=== PATIENT | female | born 1990 | race Caucasian/White ===

== ENCOUNTER 2017-06-27 11:49 | Emergency (ER) | payer MEDICAID ==
[~2017-06-27] VITALS: Ht 162.6 cm; Wt 67.6 kg
[~2017-06-27 11:49] MED LIST: BUSPAR10 MG PO; FLEXERIL10 MG PO; FLEXERIL5 MG PO; KLONOPIN 0.5MG0.5 MG PO; LORTAB 5/500 501 TAB PO; NAPROSYN500 M1 PO; NOMEDS; PHENERGAN 25MG.25 M1 PO; ULTRAM 50 MG TA50 MG PO; VISTARIL25 M1 PO; VOLTAREN75 MG PO; ZOLOFT25 MG PO
[2017-06-27] MEDS ORDERED: VISTARIL50 MG PO (12:30)
--- NOTE | 2017-06-27 12:31 | [facility]gent Treatment [facility] Report ---
History of Present Issue Date/Time Seen by Provider 06/27/17 1216 Visit Reason Pt arrived:Walked Presenting Problem:PT ADVISES THAT SHE HAS HAD AN ANXIETY ATTACK FOR 3 DAYS Location if Accident: Onset of symptoms date/time:/ or onset unknown for:MEDICAL HX UNKNOWN Have you (or family members/close friends) recently traveled outside the [place]? N If Yes, where/when: Have you had exposure to infectious disease within the past month? TB? Other? Specify: Patient state that she was diagnosed with anxiety 5 years ago and currently on medication for it States that recently she has been really stressed out and been having anxiety attacks on and off for the last 3 days States that she called her family doctor to see if she could get into see her today and she told her to come here and get seen to get her a little something to get her through until her appointment on Thursday. ALLERGIES Coded Allergies: ethinyl estradiol (From [employer] (28)) (MOOD CHANGES 11/09/15) hydrocodone (I-HIVES 11/09/15) norgestimate (From [employer] (28)) (MOOD CHANGES 11/09/15) Home Medications Active Scripts Naproxen (Naprosyn 500MG Tab) 500 MG PO BID #40 TAB Prov: 02/06/17 History Medical History General CAD? No Angina: No [place]: No Hypertension? No Hyperlipidemia? No CHF? No DVT? No PE? No COPD? No Asthma? Yes Anemia? No GERD? No Gastric ulcers? No GI Bleed? No Hernia? No Thyroid Problems? No Hypothyroidism? No CVA? No Seizures? No Diabetes? No Renal Insuffiency? No UTI? No Stones? No BPH? No GB Disease: No Nephritic Syndrome? No Asplenia? No Hepatitis? No Sickle Cell Disease? No Arthritis? No Migraines? No Cataracts? No Glaucoma? No MRSA? No HIV? No TB? No Anxiety? Yes Depression? No Cancer? No More? Yes Additional hx: DEPRESSION OVARIAN CYSTS Immunization HX DT/Tetanus Unknown Flu Refused Pneumonia Never Had Surgical Hx Previous Surgery?Y SECTION-09/24 NOSE FX OVARIAN CYST-LAPRASCOPIC TUBAL Family History Family HX Diabetes Yes CAD Yes Hypertension Yes Hyperlipidemia No Cancer Yes TB No Social History Smoking Hx Smoker: Current Every Day Smoker Tobacco: Yes Type Cigarettes Packs/day < 1 Pack Alcohol Alcohol: No Review of Systems All Other Systems Reviewed and Negative Psychiatric/Neurological anxiety Comment History of anxiety for the last 5 years currently taking Welbutrin but for the last 3 days she has been having anxiety attacks Physical Exam Vital Signs Vital Signs Date Time Temp Pulse Resp B/P Pulse O2 O2 Flow FiO2 Ox Delivery Rate 06/27 1214 98.3 103 18 104/77 96 General Appearance Patient sitting on exam table rolling hands in no distress Respiratory Status Yes: trachea midline, chest symmetrical, non tender chest. No: respiratory distress. 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 No Departure Departure Time of Disposition 1224 Disposition DC Home or Self Care(routine) Clinical Impression Primary Impression: Panic anxiety syndrome Condition STABLE Referrals [facility] (Family): [facility] Patient Instructions Anxiety Disorders, DI for Anxiety -- Adult Additional Instructions Follow up with family doctor Return if needed Take medication as prescribed If you begin to have feeling like you are going to hurt yourself or someone go immediately to the closest ER and check yourself in Do not drive on this medication This medication may make you drowsy be careful operating machinery or walking on stairs Discharge Counseling Counseled pt/family regarding diagnosis, medications/RX, home care, follow up needs Prescriptions Current Visit Scripts Hydroxyzine Pamoate (Vistaril) 50 MG PO Q8HP PRN anxiety #60 CAP at 1231
[2017-06-27 12:35] VITALS: BP 104/77
== END 2017-06-27 12:36 | disposition home or self-care (01) ==
LOC: UTC 11:49
DX: F41.0 Panic disorder [episodic paroxysmal anxiety] (principal)